=== PATIENT | male | born 1955 | race Caucasian/White ===

== ENCOUNTER 2018-09-16 12:33 | Emergency (ER) | payer SELFPAY ==
--- NOTE | 2018-09-16 13:36 | PDOC ---
Rapid Medical Evaluation Time Seen by Provider: 09/16/18 13:32 Medical Evaluation: Allergies Allergy/AdvReac Type Severity Reaction Status Date / Time No Known Allergies Allergy Verified 01/28/15 12:07 09/16/18 13:33 I have performed a brief in-person evaluation of this patient The patient present with a chief complaint of: left sided chest pain with radiation to left upper arm x 3 days. also reports nausea and weakness. Denies dizziness Pertinent physical exam findings: NAD even and unlabored breathing heart S1s2 no pedal edema I have ordered the following: ekg, labs The patient will proceed to the ED for further evaluation. Discharge Disposition - Diagnosis Chest pain - Referrals - Patient Instructions - Post Discharge Activity
[2018-09-16 13:37] VITALS: BP 115/81; PULSE 88; TEMP 98.1; BMI 32.8
[2018-09-16 14:38] LABS: BASO % 0.7 % (0-2.0); EOS % 1.1 % (0-4.5); HEMATOCRIT 41.9 % (35.4-49); HEMOGLOBIN 14.2 GM/dL (11.7-16.9); LYMPH % 24.7 % (8-40); MCH 32.7 pg (25.7-33.7); MCHC 33.8 g/dl (32.0-35.9); MEAN CELL VOLUME 96.7 fl (80-96); MEAN PLT VOLUME 7.6 fl (7.5-11.1); MONO % 8.3 % (3.8-10.2); NEUT % 65.2 % (42.8-82.8); PLATELET COUNT 272 K/MM3 (134-434); RBC 4.33 M/mm3 (4.00-5.60); RDW 13.8 % (11.9-15.9); WHITE BLOOD COUNT 6.7 K/mm3 (4.0-10.0)
[2018-09-16 14:58] LABS: INR 1.04 (0.83-1.09); PROTHROMBIN TIME (PATIENT) 12.3 SEC (9.7-13.0)
[2018-09-16 15:00] LABS: ACTIVATED PTT 30.1 SECONDS (25.2-36.5)
[2018-09-16 15:07] LABS: ALBUMIN 4.3 g/dl (3.4-5.0); ALK PHOS 57 U/L (45-117); ANION GAP 8 MMOL/L (8-16); BILIRUBIN,TOTAL 0.8 mg/dL (0.2-1); BLOOD UREA NITROGEN 8 mg/dL (7-18); CALCIUM 9.2 mg/dL (8.5-10.1); CHLORIDE 104 mmol/L (98-107); CO2 29 mmol/L (21-32); CREATININE 0.7 mg/dL (0.55-1.3); GLUCOSE,RANDOM 117 mg/dL (74-106); POTASSIUM 3.9 mmol/L (3.5-5.1); SGOT/AST 16 U/L (15-37); SGPT/ALT 21 U/L (13-61); SODIUM 141 mmol/L (136-145); TOT PROT 7.1 g/dl (6.4-8.2)
[2018-09-16] MEDS ORDERED: FAMOTIDINE 20 MG/50 ML IVPB 20 MG/50 ML MG IVPB ONE ×2 (15:44→16:13)
[2018-09-16] MEDS ORDERED: MAG HYDROX/AL HYDROX/SIMETH -MYLANTA- ORAL SUSPENSION PO ONE (15:44)
[2018-09-16] MEDS ORDERED: SODIUM CHLORIDE 1,000 ML IV STA (15:45)
--- NOTE | 2018-09-16 15:48 | PDOC ---
History of Present Illness - General Chief Complaint: Chest Pain Stated Complaint: CHEST PAIN Time Seen by Provider: 09/16/18 13:32 History Source: Patient Exam Limitations: No Limitations - History of Present Illness Initial Comments: 09/16/18 15:43 62 yo male pmh of chronic back pain presents to the ED with 3 days of abdominal pain, substernal CP and left arm numbness/weakness. Pt states the symptoms started 3 days ago, non exertional, described as chest burning with numbness down left arm, worse when lying flat and has been unable to sleep at night due to symptoms worse with lying down. Pt denies hx smoking, family hx heart disease , recent travel/immobilization, calf tenderness, N/V/F/C, diaphoresis, new back pain. Pt admits to new stress at work Past History - Past Medical History Allergies/Adverse Reactions: Allergies Allergy/AdvReac Type Severity Reaction Status Date / Time No Known Allergies Allergy Verified 09/16/18 13:37 Home Medications: Ambulatory Orders Aspirin [Aspirin EC] 325 mg PO DAILY 01/28/15 Hydrocodone/Acetaminophen [[place] 5-325 Tablet] 1 - 2 tab PO QID PRN #90 tablet 01/29/15 Ibuprofen 800 mg PO TID PRN #60 tablet 01/29/15 Anemia: No Asthma: No Cancer: No Cardiac Disorders: No CVA: No COPD: No CHF: No Dementia: No Diabetes: No GI Disorders: No Disorders: No HTN: No Hypercholesterolemia: No Liver Disease: No Seizures: No Thyroid Disease: No - Suicide/Smoking/Psychosocial Hx Smoking History: Never smoked Have you smoked in the past 12 months: No Information on smoking cessation initiated: No Hx Alcohol Use: No Drug/Substance Use Hx: No Substance Use Type: None Hx Substance Use Treatment: No Review of Systems - Review of Systems Constitutional: No: Chills, Fever Respiratory: No: Shortness of Breath Cardiac (ROS): Yes: Chest Pain (burning). No: Edema, Palpitations ABD/GI: No: Constipated, Diarrhea, Nausea, Vomiting : No: Burning, Dysuria, Flank Pain Musculoskeletal: No: Back Pain Neurological: Yes: Weakness (left upper ext). No: Unsteady Gait, Ataxia *Physical Exam - Vital Signs Last Vital Signs Temp Pulse Resp BP Pulse Ox 98.1 F 88 18 115/81 100 09/16/18 13:34 04/01/19 13:34 09/16/18 13:34 09/16/18 13:34 09/16/18 13:34 - Physical Exam General Appearance: Yes: Nourished, Appropriately Dressed. No: Apparent Distress HEENT: positive: EOMI, LEYDI, Normal Voice, Hearing Grossly Normal Neck: positive: Supple. negative: Carotid bruit, Tender midline Respiratory/Chest: positive: Chest Tender, Lungs Clear, Normal Breath Sounds. negative: Accessory Muscle Use, Rapid RR, Crackles, Wheezing Cardiovascular: positive: Regular Rhythm, Regular Rate, S1, S2. negative: JVD, Murmur Vascular Pulses: Dorsalis-Pedis (R): 4+, Doralis-Pedis (L): 4+ Gastrointestinal/Abdominal: positive: Flat, Soft. negative: Pulsatile Mass, Protuberent, Distended, Guarding, Rebound, Tenderness Musculoskeletal: positive: Normal Inspection. 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 negative: Facial Droop, Sensory Deficit, Confused, Disoriented Heart Score/ECG Review - History History: Slightly suspicious - Electrocardiogram EKG: Normal - Age Age: 45-65 - Risk Factors Risk Factors Heart Score: No Hx Hypercholesterolemia, No Hx Hypertension, No Hx Diabetes, No Smoking History, No Positive family hx of cardiac disease Based on the list above the patient has:: No risk factors known - Troponin Troponin: </= normal limit - Score Heart Score - Total: 1 ED Treatment Course - LABORATORY CBC & Chemistry Diagram: 09/16/18 14:20 09/16/18 14:20 - ADDITIONAL ORDERS Additional order review: Laboratory Results 09/16/18 09/16/18 09/16/18 14:20 14:20 14:20 WBC 6.7 RBC 4.33 Hgb 14.2 Hct 41.9 MCV 96.7 H MCH 32.7 MCHC 33.8 RDW 13.8 Plt Count 272 MPV 7.6 Absolute Neuts (auto) 4.3 Neutrophils % 65.2 Lymphocytes % 24.7 Monocytes % 8.3 Eosinophils % 1.1 Basophils % 0.7 Nucleated RBC % 0 PT with INR 12.30 INR 1.04 PTT (Actin FS) 30.1 Sodium 141 Potassium 3.9 Chloride 104 Carbon Dioxide 29 Anion Gap 8 BUN 8 Creatinine 0.7 Creat Clearance w eGFR 114.27 Random Glucose 117 H Calcium 9.2 Total Bilirubin 0.8 AST 16 ALT 21 Alkaline Phosphatase 57 Troponin I < 0.02 Total Protein 7.1 Albumin 4.3 09/16/18 14:20 RBC 4.33 MCV 96.7 H MCHC 33.8 RDW 13.8 MPV 7.6 Neutrophils % 65.2 Lymphocytes % 24.7 Monocytes % 8.3 Eosinophils % 1.1 Basophils % 0.7 Medical Decision Making - Medical Decision Making 62 yo male pmh of chronic back pain presents to the ED with 3 days of abdominal pain, substernal CP and left arm numbness/weakness. Pt states the symptoms started 3 days ago, non exertional, described as chest burning with numbness down left arm, worse when lying flat and has been unable to sleep at night due to symptoms worse with lying down. Pt denies hx smoking, family hx heart disease , recent travel/immobilization, calf tenderness, SOB when lying flat or with activity, N/V/F/C, diaphoresis, new back pain. Pt admits to new stress at work Pt states he has seen [employer] many years ago, no stress test was done and does not have any cardiac conditions diagnosed Vitals WNL AOX3 NAD, non toxic appearing, pt comfortable and ambulates without difficulty Denies current complaints and states he has had no chest discomfort since AM HEART score 1 due to pts age DDX INLT: ACS (HEART score 1, ekg and trop to r/o), PE (no risk factors or physical exam findings/hpi to indicate PE) GERD, anxiety/panic attacks EKS NSR without ST elevations or depressions CBC, CMP wnl trops negative CXR negative for acute path Pt given fluids, pepcid and maalox without recurrence or pain, states he feels well and has already scheduled a f/u appointment with his PCP 09/19/2018. Pt aware he should undergo further outpatient cardiac work up including echo and stress testing Pt stable for DC. Understands and agrees with plan and given strict return precautions *DC/Admit/Observation/Transfer Diagnosis at time of Disposition: Chest pain - Discharge Dispostion Disposition: HOME - Referrals Referrals: Luis Kimbrough MD [Primary Care Provider] - Norm Monte MD [Staff Physician] - - Patient Instructions Printed Discharge Instructions: DI for Atypical Chest Pain Additional Instructions: Please make it to your Primary Doctor appointment on 09/19/2018 and discuss the chest pain you have had along with having a stress echo and Cardiology appointment. Return to the ER with new or concerning symptoms such as: persistent chest pain worse with activity, shortness of breath, high fevers or an inability to eat or drink. Take over the counter Tums and Pepcid to control heart burn along with reducing spicy or fried food meals 2 hours before bed time. Thank you - Post Discharge Activity
[2018-09-16] MEDS ORDERED: MAG HYDROX/AL HYDROX/SIMETH 30 ML UNIT-DOSE CUP ONE (16:12)
--- NOTE | 2018-09-16 16:15 | PDOC ---
Attending Attestation - Resident Resident Name: TamiaNicko - ED Attending Attestation I have performed the following: I have examined & evaluated the patient, The case was reviewed & discussed with the resident, I agree w/resident's findings & plan - HPI HPI: 09/16/18 16:10 62y/o M no sig PMH p/w 3 days of intermittent epigastric/substernal discomfort with L hand tingling. Symptoms occur exclusively at night when lying flat, non- exertional. no associated sob/palp/n/diaphoresis/light headedness. no cough/f/ c. no h/o chest pain, has unlimited exercise tolerance at baseline. never had a stress test, never had egd or c-scope. no injury, no PE risk factors. during history, admits to recent stress/anxiety at work. no history of panic attacks. - Physicial Exam PE: 09/16/18 16:14 vss well appearing, standing in hallway, conversant heart regular, no murmur. lungs ctab no chest wall ttp or rash or bruise abd benign with no focal ttp no edema/calf ttp - Medical Decision Making 09/16/18 16:15 62-year-old male healthy and high functioning with no ACS risk factors presents with atypical epigastric/substernal chest pain intermittently for the last 3 nights, not exertional and without associated pulmonary complaints. Heart score of one for age, last episode was about 10 hours ago around 6 AM. Labs sent from triage, troponin negative, no leukocytosis. cxr Trial of antacids If above is within normal limits, low risk chest pain with atypical story and can be discharged to follow-up with his primary care physician at [facility], already scheduled for . Discussed that he should have outpatient echo and stress test, consideration of anxiety management by his PCP. He and his understand return criteria. Heart Score/ECG Review - History History: Slightly suspicious - Electrocardiogram EKG: Normal - Age Age: 45-65 - Risk Factors Based on the list above the patient has:: No risk factors known - Troponin Troponin: </= normal limit - Score Heart Score - Total: 1 #1 ECG reviewed & interpreted by me at: 12:31 General ECG Interpretation: Sinus Rhythm, Normal Rate (78), Normal Intervals ( qtc 419), No acute ischemic changes (q noted III/AVF, no st changes) Compared to previous ECG there are: Previous ECG unavail
--- NOTE | 2018-09-17 14:44 | EKG ---
Test Reason : Blood Pressure : / mmHG Vent. Rate : 078 BPM Atrial Rate : 078 BPM P-R Int : 136 ms QRS Dur : 088 ms QT Int : 368 ms P-R-T Axes : 053 -13 029 degrees QTc Int : 419 ms POOR DATA QUALITY, INTERPRETATION MAY BE ADVERSELY AFFECTED NORMAL SINUS RHYTHM INFERIOR INFARCT , AGE UNDETERMINED ABNORMAL ECG NO PREVIOUS ECGS AVAILABLE Confirmed by Rachid Mckeon ([id number]) on 09/17/2018 2:43:35 PM Referred By: Confirmed By:Rachid Mckeon
== END 2018-09-16 17:15 | disposition home or self-care (01) ==
LOC: JER 12:33
PROC: 3E033GC Introduction of Other Therapeutic Substance into Peripheral Vein, Percutaneous Approach (ICD-10-PCS; principal; 2018-09-16)
DX: R07.9 Chest pain, unspecified (principal)
CPT/HCPCS: 36415; 71046-TC-FY; 80053; 84484; 85025; 85610; 85730; 93005; 93010; 99283-25; J7030